=== PATIENT | male | born 1965 | race American Indian/Alaskan Native ===

== ENCOUNTER 2018-12-18 04:29 | Emergency (ER) | payer SELFPAY ==
[2018-12-18 05:25] VITALS: BP 171/95
--- NOTE | 2018-12-18 06:45 | Emergency Department Report ---
ED Lower Extremity HPI - General Chief Complaint: Extremity Injury, Lower Stated Complaint: SWELLING IN FEET Time Seen by Provider: 12/18/18 06:40 Source: patient Mode of arrival: Ambulatory Limitations: No Limitations - History of Present Illness Initial Comments: Mr. 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 bilateral feet started itching 2 days ago that has a red rash patient does confirm contact with antifreeze and multiple other chemicals at work there is no blisters no open sores or lesions patient does have a history of athlete's foot patient examined her gait is steady there is no pain is no deformity /10 itching there is no history of diabetes no fall injury or trauma MD Complaint: foot injury Onset/Timin -: days(s) Injury: Foot: Right, Left Type of Injury: other (rash irritation) Place: work Severity: moderate Severity scale (0 -10): 4 Worsens With: palpation Context: other (rash erythema ) Associated Symptoms: swelling, other (erythema ) - Related Data Previous Rx's Medication Instructions Recorded Last Taken Type Nystatin/Triamcin 1 applicatio TP BID 14 Days #1 tube 12/18/18 Unknown Rx [Nystatin-Triamcinolone Ointm] Terbinafine [LamiSIL At 1%] 1 applicatio TP BID 14 Days #1 tube 12/18/18 Unknown Rx diphenhydrAMINE [Benadryl CAP] 25 mg PO Q6HR PRN #30 capsule 12/18/18 Unknown Rx Allergies Allergy/AdvReac Type Severity Reaction Status Date / Time No Known Allergies Allergy Unverified 12/18/18 05:24 ED Review of Systems ROS: Stated complaint: SWELLING IN FEET Other details as noted in HPI Constitutional: denies: chills, fever Eyes: denies: eye pain, eye discharge, vision change ENT: denies: ear pain, throat pain Respiratory: denies: cough, shortness of breath, wheezing Cardiovascular: denies: chest pain, palpitations Endocrine: no symptoms reported Gastrointestinal: denies: abdominal pain, nausea, diarrhea Genitourinary: denies: urgency, dysuria Musculoskeletal: other (bilat foot rash ) Skin: rash (bialt foot dorsal 2 inch bands). denies: lesions Neurological: denies: headache, weakness, paresthesias Psychiatric: denies: anxiety, depression Hematological/Lymphatic: denies: easy bleeding, easy bruising ED Past Medical Hx - Past Medical History Previous Medical History?: Yes Hx Hypertension: Yes - Surgical History Past Surgical History?: No - Social History Smoking Status: Former Smoker Substance Use Type: None - Medications Home Medications: Home Medications Medication Instructions Recorded Confirmed Last Taken Type Nystatin/Triamcin 1 applicatio TP BID 14 Days #1 tube 12/18/18 Unknown Rx [Nystatin-Triamcinolone Ointm] Terbinafine [LamiSIL At 1%] 1 applicatio TP BID 14 Days #1 tube 12/18/18 Unknown Rx diphenhydrAMINE [Benadryl CAP] 25 mg PO Q6HR PRN #30 capsule 12/18/18 Unknown Rx ED Physical Exam - General Limitations: No Limitations General appearance: alert, in no apparent distress - Head Head exam: Present: atraumatic, normocephalic - Eye Eye exam: Present: normal appearance, PERRL, EOMI Pupils: Present: normal accommodation - ENT ENT exam: Present: mucous membranes moist - Neck Neck exam: Present: normal inspection, full ROM. Absent: tenderness, meningismus, lymphadenopathy, thyromegaly - Respiratory Respiratory exam: Present: normal lung sounds bilaterally. Absent: respiratory distress - Cardiovascular Cardiovascular Exam: Present: regular rate, normal rhythm, normal heart sounds. Absent: systolic murmur, diastolic murmur, rubs, gallop - GI/Abdominal GI/Abdominal exam: Present: soft, normal bowel sounds. Absent: tenderness, bruit, hernia - Rectal Rectal exam: Present: deferred - Extremities Exam Extremities exam: Present: normal inspection - Back Exam Back exam: Present: normal inspection, full ROM. Absent: tenderness, CVA tenderness (R), CVA tenderness (L), muscle spasm, paraspinal tenderness, vertebral tenderness, rash noted - Neurological Exam Neurological exam: Present: alert, oriented X3, CN II-XII intact, normal gait - Psychiatric Psychiatric exam: Present: normal affect, normal mood - Skin Skin exam: Present: warm, dry, intact, normal color, rash (bilat dorsal feet 2inch band across midfoot bilat there is break in skin no lesion no blisters no deformity distal pulses intact ) ED Course Vital Signs 12/18/18 04:33 Temperature 97.7 F Pulse Rate 56 L Respiratory 18 Rate Blood Pressure 171/95 O2 Sat by Pulse 99 Oximetry ED Lower Extremity MDM - Medical Decision Making bilat foot rash likley contact dermatitis there is no fever no chills no open skin no weeping plan: mupiriocin oint, nystatin powder lamasil gel for oncyochitis follow up with podiatry, pt will return to ED if symptoms worsen ,pt verbalized agreement and understanding of discharge plan. Critical care attestation.: If time is entered above; I have spent that time in minutes in the direct care of this critically ill patient, excluding procedure time. ED Disposition Clinical Impression: Tinea, Nail bed infection Contact dermatitis Qualifiers: Contact dermatitis type: irritant Contact dermatitis trigger: unspecified trigger Qualified Code(s): L24.9 - Irritant contact dermatitis, unspecified cause Disposition: TO HOME OR SELFCARE Is pt being admited?: No Does the pt Need Aspirin: No Condition: Stable Instructions: Contact Dermatitis (ED), Tinea Pedis (ED) Prescriptions: diphenhydrAMINE [Benadryl CAP] 25 mg PO Q6HR PRN #30 capsule PRN Reason: Itching Nystatin/Triamcin [Nystatin-Triamcinolone Ointm] 1 applicatio TP BID 14 Days #1 tube Terbinafine [LamiSIL At 1%] 1 applicatio TP BID 14 Days #1 tube Referrals: NEYDA ALVAREZ DPM [Referring] - 3-5 Days Forms: Work/School Release Form(ED) Time of Disposition: 07:01
== END 2018-12-18 07:09 | disposition home or self-care (01) ==
LOC: ED 04:29
DX: B35.9 Dermatophytosis, unspecified (principal); L25.9 Unspecified contact dermatitis, unspecified cause; I10 Essential (primary) hypertension; Z87.891 Personal history of nicotine dependence
CPT/HCPCS: 99282

== ENCOUNTER 2020-02-28 20:04 | Emergency (ER) | payer SELFPAY ==
[2020-02-28 21:03] LABS: Basophils % (Auto) 0.3 % (0.0-1.8); Eosinophils # (Auto) 0.1 K/mm3 (0.0-0.4); Eosinophils % (Auto) 1.7 % (0.0-4.3); Hematocrit 43.4 % (35.5-45.6); Hemoglobin 14.4 gm/dl (11.8-15.2); Lymphocytes # (Auto) 2.2 K/mm3 (1.2-5.4); Lymphocytes % (Auto) 30.4 % (13.4-35.0); Mean Corpuscular HGB Conc 33 % (32-34); Mean Corpuscular Volume 83 fl (84-94); Monocytes # (Auto) 0.7 K/mm3 (0.0-0.8); Monocytes % (Auto) 10.3 % (0.0-7.3); Platelet Count 187 K/mm3 (140-440); Red Blood Count 5.24 M/mm3 (3.65-5.03)
[2020-02-28] MEDS ORDERED: amLODIPine 5 MG TAB PO ONE (21:13)
[2020-02-28] MEDS ORDERED: ASPIRIN 325 MG TAB PO ONE (21:13)
--- NOTE | 2020-02-28 21:17 | Emergency Department Report ---
<YSBAEL CARVALHO - Last Filed: 02/28/20 23:39> ED General Adult HPI - General Chief complaint: Chest Pain Stated complaint: POSS ELEVATED BP Time Seen by Provider: 02/28/20 21:05 - Related Data Previous Rx's Medication Instructions Recorded Last Taken Type Nystatin/Triamcin 1 applicatio TP BID 14 Days #1 tube 12/18/18 Unknown Rx [Nystatin-Triamcinolone Ointm] Terbinafine [LamiSIL At 1%] 1 applicatio TP BID 14 Days #1 tube 12/18/18 Unknown Rx diphenhydrAMINE [Benadryl CAP] 25 mg PO Q6HR PRN #30 capsule 12/18/18 Unknown Rx Lisinopril [Zestril] 5 mg PO DAILY #30 tablet 02/28/20 Unknown Rx amLODIPine 10 mg PO DAILY #30 tab 02/28/20 Unknown Rx Allergies Allergy/AdvReac Type Severity Reaction Status Date / Time No Known Allergies Allergy Unverified 02/28/20 20:32 ED Past Medical Hx - Medications Home Medications: Home Medications Medication Instructions Recorded Confirmed Last Taken Type Nystatin/Triamcin 1 applicatio TP BID 14 Days #1 tube 12/18/18 Unknown Rx [Nystatin-Triamcinolone Ointm] Terbinafine [LamiSIL At 1%] 1 applicatio TP BID 14 Days #1 tube 12/18/18 Unknown Rx diphenhydrAMINE [Benadryl CAP] 25 mg PO Q6HR PRN #30 capsule 12/18/18 Unknown Rx Lisinopril [Zestril] 5 mg PO DAILY #30 tablet 02/28/20 Unknown Rx amLODIPine 10 mg PO DAILY #30 tab 02/28/20 Unknown Rx ED Medical Decision Making - Lab Data Result diagrams: 02/28/20 20:55 02/28/20 20:55 - Medical Decision Making Chart was signed out to me to evaluate recheck of patient's blood pressure. Powerplant Operator reports blood pressure is 139/72. Discharge paperwork will be given to director compliance to discharge from [facility] physician assistant federal public defender. ED Disposition Clinical Impression: Hypertensive urgency, Tingling Headache Qualifiers: Headache type: unspecified Headache chronicity pattern: acute headache Intractability: not intractable Qualified Code(s): R51 - Headache Disposition: DC-01 TO HOME OR SELFCARE Condition: Stable Instructions: Hypertension (ED) Additional Instructions: Please take medication as prescribed. Please keep a blood pressure log and to monitor your blood pressure 3 times a day and take this log to the primary care doctor. Please follow-up with your primary care doctor for management of this chronic condition, future refills will need to be through a primary care docto rs. Eat a low-sodium diet, increase your water intake, incorporate 30 minutes of daily exercise. Return to emergency room for any new or worsening symptoms. Prescriptions: amLODIPine 10 mg PO DAILY #30 tab Lisinopril [Zestril] 5 mg PO DAILY #30 tablet Referrals: BRADEN KEITH MD [Staff Physician] - 3-5 Days [facility] [Provider Group] - 3-5 Days [facility] [Outside] - 3-5 Days [facility] [Outside] - 3-5 Days Print Language: ISRAELI <AYE ERICKSON - Last Filed: 03/01/20 08:54> ED General Adult HPI - General Source: patient Mode of arrival: Ambulatory Limitations: No Limitations - History of Present Illness Initial comments: Patient is a 55-year-old male who presents emergency room with complaints of elevated blood pressure that occurred today. He states that he felt a tingling sensation in his bilateral arms which made him check his blood pressure. He states he now has a mild frontal headache. He states his blood pressure was 186/114 at home. He denies any lightheadedness, dizziness, vision changes, complete numbness, weakness, chest pain, cough, shortness of breath, fever, speech disturbance, gait disturbance. He states he has a past medical history of hypertension but has not taken his medication in multiple years and states that he does not have a primary care doctor. He denies any allergies to medications. Initially the triage complaint said chest pain, patient is currently denying chest pain. ED Review of Systems ROS: Stated complaint: POSS ELEVATED BP Other details as noted in HPI Comment: All other systems reviewed and negative ED Past Medical Hx - Past Medical History Previous Medical History?: Yes Hx Hypertension: Yes - Surgical History Past Surgical History?: No - Social History Smoking Status: Never Smoker Substance Use Type: None ED Physical Exam - General Limitations: No Limitations General appearance: alert, in no apparent distress - Head Head exam: Present: atraumatic, normocephalic - Eye Eye exam: Present: normal appearance, PERRL, EOMI - ENT ENT exam: Present: mucous membranes moist - Respiratory Respiratory exam: Present: normal lung sounds bilaterally. Absent: respiratory distress, wheezes, rales, rhonchi, stridor, chest wall tenderness, accessory muscle use, decreased breath sounds, prolonged expiratory - Cardiovascular Cardiovascular Exam: Present: regular rate, normal rhythm, normal heart sounds. Absent: systolic murmur, diastolic murmur, rubs, gallop - Neurological Exam Neurological exam: Present: alert, oriented X3, CN II-XII intact, normal gait, other (normal finger to nose, normal heel to [place], no facial asymmetry, 5/5 muscle strength in the BUE/BLE, sensation intact throughout, no focal neuro deficit). Absent: motor sensory deficit - Psychiatric Psychiatric exam: Present: normal affect, normal mood - Skin Skin exam: Present: warm, dry, intact ED Course Vital Signs 02/28/20 02/28/20 02/28/20 20:26 21:48 22:41 Temperature 98.7 F Pulse Rate 59 L 58 L 69 Respiratory 18 Rate Blood Pressure 192/110 172/100 Blood Pressure 191/108 [Left] O2 Sat by Pulse 100 Oximetry 02/28/20 23:38 Temperature 98 F Pulse Rate 76 Respiratory 18 Rate Blood Pressure Blood Pressure 139/72 [Left] O2 Sat by Pulse 99 Oximetry ED Medical Decision Making - Lab Data Result diagrams: 02/28/20 20:55 02/28/20 20:55 - EKG Data EKG shows normal: sinus rhythm, axis, intervals, QRS complexes, ST-T waves Rate: bradycardia - Radiology Data Radiology results: report reviewed CHEST 2 VIEWS INDICATION / CLINICAL INFORMATION: CP. COMPARISON: None available. FINDINGS: SUPPORT DEVICES: None. HEART / MEDIASTINUM: No significant abnormality. LUNGS / PLEURA: No significant pulmonary or pleural abnormality. No pneumothorax. ADDITIONAL FINDINGS: No significant additional findings. IMPRESSION: 1. No acute findings. Signer Name: Ac Terrell MD Signed: 02/28/2020 9:13 PM Workstation Name: [id number] Transcribed By: DAPHNE Dictated By: Ac Terrell MD Electronically Authenticated By: Ac Terrell MD Signed Date/Time: 02/28/202112 DD/ 11 TD/TT: - Medical Decision Making Patient is a 55-year-old male who presents emergency room with complaints of elevated blood pressure that occurred today. He states that he felt a tingling sensation in his bilateral arms which made him check his blood pressure. He states he now has a mild frontal headache. He states his blood pressure was 186/114 at home. He denies any lightheadedness, dizziness, vision changes, complete numbness, weakness, chest pain, cough, shortness of breath, fever, speech disturbance, gait disturbance. He states he has a past medical history of hypertension but has not taken his medication in multiple years and states that he does not have a primary care doctor. He denies any allergies to medications. Initially the triage complaint said chest pain, patient is currently denying chest pain. No abnormality on physical exam as documented in chart. Patient has elevated blood pressure on his vitals. labs are normal. EKG with mild bradycardia otherwise normal. CXR with no acute process. pt is presenting with HTN urgency. Patient given 10 mg of amlodipine and still has elevated blood pressure and still continues to have a mild headache and tingling. His neuro exam is normal. Patient given 100 mg of hydralazine p.o. and signed out to Chelle Carvalho PA-C pending repeat blood pressure, on repeat of blood pressure it is 139/72. Patient was prescribed lisinopril and amlodipine. advised pt Please take medication as prescribed. Please keep a blood pressure log and to monitor your blood pressure 3 times a day and take this log to the primary care doctor. Please follow-up with your primary care doctor for management of this chronic condition, future refills will need to be through a primary care doctors. Eat a low-sodium diet, increase your water intake, incorporate 30 minutes of daily exercise. Return to emergency room for any new or worsening symptoms. Critical care attestation.: If time is entered above; I have spent that time in minutes in the direct care of this critically ill patient, excluding procedure time. ED Disposition Is pt being admited?: No Does the pt Need Aspirin: No
[2020-02-28 21:28] LABS: Alanine Aminotransferase 39 units/L (7-56); Albumin 4.5 g/dL (3.9-5); BUN/Creatinine Ratio 15; Blood Urea Nitrogen 15 mg/dL (9-20); Calcium 9.3 mg/dL (8.4-10.2); Hemolysis Index 11
[2020-02-28] MEDS ORDERED: hydrALAZINE 100 MG TAB PO ONE (22:45)
[2020-02-28 23:38] VITALS: BP 139/72
== END 2020-02-28 23:42 | disposition home or self-care (01) ==
LOC: ED 20:04
DX: I16.0 Hypertensive urgency (principal); R51 Headache; R20.2 Paresthesia of skin; Z79.899 Other long term (current) drug therapy
CPT/HCPCS: 36415; 71046; 80053; 84484; 85025; 93005